=== PATIENT | male | born 1950 | race Caucasian/White ===

== ENCOUNTER 2022-07-02 08:29 | Day surgery (SDC) | payer OTHER, SELFPAY ==
[2022-07-01 08:53] VITALS: BMI 28.8
[2022-07-02] VITALS (8 sets, daily range): BP systolic 114–145; BP diastolic 74–87; PULSE 69–88; RESP 10–16; TEMP 36.3–36.9; O2SAT 97–98; BMI 28.8
--- NOTE | 2022-07-02 | DI.RAD.S_ITS ---
PROCEDURE: XR FOOT RT 2V INDICATIONS: ORIF TECHNIQUE: 3 views of the foot were acquired. COMPARISON: Outside Film, CR, XR FOOT 3+ VIEWS RIGHT, 06/25/2022, 11:13. FINDINGS: Bones: No previously unidentified fractures or dislocations. No suspicious bony lesions. A longitudinally placed fixation screw crosses the fracture across the proximal diaphysis of the 5th metatarsal bone, establishing normal anatomic alignment for healing. Soft tissues: No tibiotalar joint effusion. Achilles tendon appears normal. IMPRESSION: Excellent anatomic alignment established for healing a crossed a proximal diaphyseal 5th metatarsal fracture, right foot. Dictated by: Donald Parisi M.D. on 07/02/2022 at 14:30 Approved by: Donald Parisi M.D. on 07/02/2022 at 14:32
[2022-07-02] MEDS: LACTATED RINGERS 1,000 ML 42 ML IV ×2 (09:20→11:20)
--- NOTE | 2022-07-02 10:05 | PM.PREOP ---
Pre-operative Note Interval Note History & Physical reviewed/Exam performed by Physician: Yes Changes to H&P: No
[2022-07-02] MEDS: CEFAZOLIN 2 GM/100 ML PREMIX 100 ML IV (10:27)
--- NOTE | 2022-07-02 10:53 | SUR.OPER ---
Supine on padded OR bed, head on pillow, arms secured on padded arm boards at <90 degrees abduction with additional blanket pad under right arm because of flank bump, legs uncrossed, safety belt at abdomen, tape over blanket over lower left leg. Sutter roll under right flank
[2022-07-02] MEDS: BUPIVACAINE 0.5% W/ EPI (PF) 30 ML VIAL INJ (11:04)
--- NOTE | 2022-07-02 13:24 | SUR.PHASEII ---
Patient sitting up on side of bed with assisting. Denies dizziness at this time. Instructed to call for assistance if needed.
--- NOTE | 2022-07-02 15:08 | P.OP_ITS ---
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 Fracture 1st occurred last February thought he was getting better but re-injured himself recently was found to have a nonunion. Been indicated for open reduction internal fixation of the 5th metatarsal fracture. We discussed intramedullary screws versus plates based on comminution and additionally indicated for bone graft due to the nonunion status of this fracture. The risks and benefits of the procedure have been discussed with the patient and given the opportunity to ask questions. The risks of surgery include but are not limited to infection, malunion, nonunion, persistence of pain, damage to nerves and blood vessels, posttraumatic arthritis, DVT, PE, coardiopulmonary complications and . The patient expressed a thorough understanding of the risks and benefits of surgery and has elected to proceed. Consent was signed in the office. Surgeon: Opal Chaparro Click Yes if Unassisted: Yes Anesthesia Type: General and Local Operative Notes Findings: Nonunion 5th metatarsal base fracture zone 2 Closure Type: primary Specimen(s): none sent Prosthetic devices, grafts, tissues, transplants, or devices: [place] 28 Adam fracture screw solid 5.5 by 42 mm Estimated Blood Loss (mL): 5 Blood products transfused: none Tourniquet time (min): 50 Procedure in detail: Patient was seen in the preoperative area the site of surgery was marked informed consent confirmed. The patient was brought back to the operating room positioned supine on operative table. An ipsilateral thigh bump was placed. General anesthesia was administered. A well-padded thigh tourniquet was placed. The right lower extremity was prepped and draped in standard sterile fashion a formal time-out procedure was performed confirming the patient's side and site of surgery were confirmed. Presence of informed consent was confirmed. Administration of preoperative antibiotic was confirmed. C-arm was brought in trajectory of the 5th metatarsal base an ideal starting points were marked out as well as the harvest site from the calcaneus for the bone graft. Attention was turned to the right lower extremity the Esmarch was used for exsanguination and thigh raised to 250 mmHg. Attention was 1st turned to the calcaneus a small vertical incision was made at the lateral border of the calcaneus centered in the calcaneal tuberosity. Then a blunt dissection was pain can down to the lateral calcaneal wall. A drill guide and drill for a 3 5 screw were then used to penetrate the outer cortex of the calcaneus and the drill was removed and the drill guide was impacted into the calcaneal bone this was removed and replaced several times to obtain cores of cancellous bone graft from the calcaneus. Once adequate bone was obtained attention was returned to the 5th metatarsal. The bone graft harvest site was closed with Monocryl and nylon suture. Fixation proximal metatarsal base nonunion. K-wire was introduced percutaneously starting 1-2 cm proximal to the 1st metatarsal base in the high and inside technique this was checked on AP and lateral fluoroscopy planes and advanced from the proximal 5th metatarsal base to the level of the fracture. Additionally the fracture was opened and a small lateral incision where the nonunion was and this was rongeured and drilled to help facilitate bony healing. Once this was complete the K-wire was advanced across the fracture site into the metatarsal shaft. Again this was confirmed on multiplanar fluoroscopy. Once this was complete the proximal skin at the wire insertion site was opened and blunt dissection taken along the course of the K-wire with care to protect the peroneal tendons. The cannulated drill and guide were then inserted over the K-wire and the bone was drilled or reamed. This was then removed and the bone was then tapped for a 5.5 screw. This was measured for a 42 mm countersunk screw and the screw was held up by the bone and was appropriate length. Next the K-wire was removed and then the 5.5 x 42 mm solid screw was placed with care holding compression on the fracture site as the screw past the fracture site. Fracture compression was visualized on fluoroscopy. Once this was completed the screw was countersunk it was confirmed in a excellent intramedullary position on AP and lateral planes. Then the additional calcaneus bone graft was packed laterally at the level of the fracture site laterally and plantarly to help facilitate healing. Once this was complete wounds were irrigated and closed with Monocryl and nylon suture. Additional Dermabond skin glue was placed over the incisions. These were covered with an Aquacel dressing and a Tegaderm and gauze dressing as the patient desired a waterproof dressing. Once this was complete an Kaleb wrap was placed in place it was placed back in the postoperative boot. The drapes removed the patient was woken from anesthesia taken to recovery room in good condition there no immediate complications this procedure. All counts were correct. Complications: none Post-operative Condition: stable Disposition: PACU Plan for aftercare: Nonweightbearing on the right foot for 2 weeks and will start progressive weight-bearing in clinic. Will return to clinic in 2 weeks for suture removal. May shower with waterproof dressings but should otherwise always be in the boot and treated like a cast except for hygiene. Aspirin for DVT prophylaxis.
== END 2022-07-02 13:36 | disposition home or self-care (01) ==
PROVIDERS: PCP Family Medicine; Referring Provider Orthopaedic Surgery Foot and Ankle Surgery; Visit Provider Orthopaedic Surgery Foot and Ankle Surgery
PROC: (CPT 28485; principal; 2022-07-02 10:00)
PROC: (CPT 28485; 2022-07-02 10:00)
DX: S92.351K Displaced fracture of fifth metatarsal bone, right foot, subsequent encounter for fracture with nonunion (principal); X50.1XXD Overexertion from prolonged static or awkward postures, subsequent encounter
CPT/HCPCS: 28485; 20900; 73620; 76000; J0690; J1100; J2405; J2704; J3010

== ENCOUNTER 2023-10-23 22:00 | Emergency (ER) | payer OTHER, SELFPAY ==
[2023-10-23 22:06] VITALS: BP 154/76; PULSE 86; RESP 18; TEMP 36.5; O2SAT 97; BMI 28.8
--- NOTE | 2023-10-23 22:16 | ED_ITS ---
HPI - Male Genitourinary General Chief complaint: Urogenital-Male Stated complaint: STATES NEEDS CATHETAR Time Seen by Provider: 10/23/23 22:15 Source: patient Mode of arrival: Ambulatory History of Present Illness HPI Narrative: 73-year-old male presents by private vehicle from home for 1-1/2 days of gradually worsening urinary retention. Patient states that this intermittently happens when he gets a urinary tract infection, and his PCP has given him a standing order for ciprofloxacin, which he began taking earlier today. Patient has been unable to urinate today prompting his visit to the ER. Reports suprapubic discomfort. Last catheterization 4 years ago. Related Data Home Medications Medication Instructions Recorded Confirmed Glucosamine Chondroitin 1 tab PO DAILY 07/02/22 07/02/22 ascorbic acid (vitamin C) 1,000 mg 500 mg PO DAILY 07/02/22 07/02/22 tablet (Vitamin C) cranberry 1,000 mg capsule 1,000 mg PO DAILY 07/02/22 07/02/22 losartan 50 mg-hydrochlorothiazide 2 tab PO DAILY 07/02/22 07/02/22 12.5 mg tablet saw palmetto 1,000 mg capsule 1,000 mg PO DAILY 07/02/22 07/02/22 tamsulosin 0.4 mg capsule 0.4 mg PO DAILY 07/02/22 07/02/22 turmeric 400 mg capsule 400 mg PO 07/02/22 Previous Rx's Medication Instructions Recorded hydrocodone 5 mg-acetaminophen 325 1 tab PO Q4H PRN pain #30 tabs 07/02/22 mg tablet ondansetron 4 mg disintegrating 4 mg PO Q8H PRN nausea and 07/02/22 tablet vomiting #5 tabs Allergies Allergy/AdvReac Type Severity Reaction Status Date / Time No Known Drug Allergies Allergy Verified 07/02/22 09:03 Patient History Medical History Closed displaced fracture of fifth metatarsal bone of right foot Social History household members: spouse Smoking Status: Unknown if ever smoked alcohol intake: current Smoking Status: Unknown if ever smoked alcohol intake frequency: a few times a month Substance Use Type: does not use Exam Initial Vital Signs Initial Vital Signs: Vital Signs Temperature 97.7 F 10/23/23 22:06 Pulse Rate 86 10/23/23 22:06 Respiratory Rate 18 10/23/23 22:06 Blood Pressure 154/76 H 10/23/23 22:06 Pulse Oximetry 97 10/23/23 22:06 Oxygen Delivery Method Room Air 10/23/23 22:06 Const: Awake, alert, no acute distress, nontoxic appearing GI: Soft, nontender, nondistended, no rebound, no guarding : Saez in place draining yellow urine Skin: Warm, Dry, intact, no rashes Neuro: AO x3, CN II-XII grossly intact, moves all extremities Course Orders Ordered: ED Orders 10/23/23 22:38 Urinalysis and Microscopic Stat Urine Culture Stat Discontinued Medications Lidocaine HCl (Lidocaine 2% (Glydo) 6 Ml Gel) 6 ml TOP NOW ONE Stop: 10/23/23 22:16 Last Admin: 10/23/23 22:34 Dose: 6 ml Documented By: [facility] Oxycodone/Acetaminophen (Oxycodone/Apap 5/325 Prepack) 1 bottle MISC DIRECTED ONE Stop: 10/23/23 23:01 Vital Signs Vital signs: Vital Signs - 8 hr 10/23/23 22:06 10/23/23 23:06 Temperature 97.7 F Pulse Rate 86 75 Respiratory Rate 18 18 Blood Pressure 154/76 H 123/72 Pulse Oximetry 97 95 Oxygen Delivery Method Room Air Room Air MDM - Male Genitourinary Differential Diagnosis Differential diagnosis: Likely urinary tract infection, acute retention of urine and inguinal hernia Lab Data Labs: Lab Results 10/23/23 Range/Units 22:38 Urine Color Yellow Urine Appearance Clear Urine pH 5.5 (4.5-8.0) Ur Specific [place] 1.025 (1.000-1.035) Urine Protein Negative (Negative) Urine Glucose (UA) Negative (Negative) g/dL Urine Ketones Trace H (NEGATIVE) Urine Occult Blood 1+ H (Negative) Urine Nitrate Negative (Negative) Urine Bilirubin Negative (NEGATIVE) Urine Urobilinogen 0.2 (0.2) E.U./dL Ur Leukocyte Esterase 1+ H (NEGATIVE) Urine RBC 5-10/hpf H (0-5/HPF) Urine WBC 10-30/hpf H (0-5/HPF) Ur Squamous Epith Cells 0-1 /hpf (0-5/HPF) Urine Bacteria Many (>30) H (None) Urine Mucus 2+ H (Negative) Ur Culture Indicated? Specimen cultured Vol Urine Centrifuged 10ml (spun) MDM Narrative Medical decision making narrative: Urinary retention. Saez catheter placed with drainage of clear yellow urine. Symptoms resolved after placement of Saez catheter. Urinalysis shows WBCs and many bacteria present. He already has a standing order for ciprofloxacin, which should be adequate to cover for infection. Patient states that he will call his primary care doctor tomorrow for follow up appointment. Discharge Plan Departure Patient Disposition: Home Clinical Impression: Urinary tract infection, Acute retention of urine Instructions: DI for Urinary Retention in Men Activity Restrictions/Additional Instructions: Follow up with your primary care physician. Continue to take the ciprofloxacin as you have previously been instructed to do. Prescriptions: No Action ascorbic acid (vitamin C) [Vitamin C] 1,000 mg Tablet 500 mg PO DAILY saw palmetto 1,000 mg Capsule 1,000 mg PO DAILY Rx Instructions: give with food (meal/snack) tamsulosin 0.4 mg Capsule 0.4 mg PO DAILY losartan-hydrochlorothiazide 50-12.5 mg Tablet 2 tab PO DAILY cranberry 1,000 mg Capsule 1,000 mg PO DAILY Rx Instructions: administer with meals turmeric 400 mg Capsule 400 mg PO Glucosamine Chondroitin 1 tab PO DAILY hydrocodone-acetaminophen 5-325 mg tablet 1 tab PO Q4H PRN (Reason: pain) Qty: 30 0RF Rx Instructions: postop exempt ondansetron 4 mg tablet,disintegrating 4 mg PO Q8H PRN (Reason: nausea and vomiting) Qty: 5 1RF Referrals: Ady Cast MD [Primary Care Provider] - Stand Alone Forms: Patient Portal/API
[2023-10-23] MEDS: LIDOCAINE 2% (GLYDO) 6 ML GEL TOP (22:34)
[2023-10-23 22:43] LABS: Appearance Urine UA CLEAR; Bilirubin Urine UA NEGATIVE (NEGATIVE); Color Urine UA YELLOW; Glucose Urine UA NEGATIVE (Negative); Ketones Urine UA TRACE (NEGATIVE); Leukocyte Esterase Urine UA 1+ (NEGATIVE); Nitrite Urine UA NEGATIVE (Negative); Occult Blood Urine UA 1+ (Negative); Protein Urine UA NEGATIVE (Negative); Specific Gravity Urine UA 1.025 (1.000-1.035); Urobilinogen Urine UA 0.2 E.U./dL (0.2); pH Urine UA 5.5 (4.5-8.0)
[2023-10-23 22:50] LABS: Bacteria Urine Many (>30); RBC Urine 5-10/HPF (0-5/HPF); Squamous Epithelial Cell Urine 0-1 /HPF (0-5/HPF); Urine Volume 10mL (spun); WBC Urine 10-30/HPF (0-5/HPF)
[2023-10-23 22:51] LABS: Culture Indicated Urine Specimen Cultured; Mucus Urine 2+ (Negative)
[2023-10-23 23:06] VITALS: BP 123/72; PULSE 75; RESP 18; O2SAT 95
== END 2023-10-23 23:22 | disposition home or self-care (01) ==
PROVIDERS: Emergency Provider Emergency Medicine; PCP Family Medicine
DX: N39.0 Urinary tract infection, site not specified (principal); R33.9 Retention of urine, unspecified
CPT/HCPCS: 51798; 81001; 87077; 87086; 99283